=== PATIENT | female | born 1935 | race Caucasian/White ===

== ENCOUNTER 2017-01-06 10:18 | Inpatient (IN) ==
--- NOTE | 2017-01-06 10:59 | PROVIDER DOCUMENTATION ---
This chart was entered by Beverly White Scribe, acting as scribe for Shannen Stroud PA. HPI-Female /OB/Breast - General Source: reports: patient - History of Present Illness-Female /OB Does patient report she is ?: No Location of complaint: reports: urethral Radiation: reports: none Quality of Pain: reports: aching Severity in ED: reports: mild Onset/Duration: reports: unsure Timing: reports: still present Context/Activities at Onset: reports: light activity Vaginal Symptoms: reports: no symptoms Vaginal Bleeding Amount: None Urinary Symptoms: reports: dysuria. denies: hematuria, hesitancy, polyuria, low back pain Sexual intercourse history: reports: Not Active Modifying Factors: improves with: nothing Associated Symptoms: reports: muscle aches (generalized). denies: anxiety, back /neck pain, chest pain, constipation, cough, diaphoresis, diarrhea, dizziness, fatigue, fever/chills, joint pain, loss of appetite, malaise, nausea, rash, seizure, sensory/motor loss, swelling/mass in abdomen, syncope, vomiting, weakness, trouble walking Similar Symptoms Previously?: Yes Recently seen or treated by another doctor?: Yes <Shannen Stroud - Last Filed: 01/06/17 12:20> <Marc Valencia - Last Filed: 01/07/17 06:00> - General Chief Complaint: UTI Symptoms Stated Complaint: AMS Time Seen by Provider: 01/06/17 10:28 Allergies/Adverse Reactions: Patient Allergies Allergy/AdvReac Type Severity Reaction Status Date / Time No Known Allergies Allergy Verified 01/06/17 11:01 Home Medications: Home Medication List Medication Instructions Recorded Confirmed Last Taken Type Divalproex [Depakote] 500 mg PO QHS 01/06/17 01/06/17 1 Day Ago History Donepezil HCl [Aricept] 10 mg PO QHS 01/06/17 01/06/17 1 Day Ago History Duloxetine [Cymbalta] 20 mg PO DAILY 01/06/17 01/06/17 01/06/17 History Fentanyl 1 each TD DIRECTED 01/06/17 01/06/17 Unknown History Insulin Glargine [Lantus] 10 unit SUBQ QAM 01/06/17 01/06/17 Unknown History Levothyroxine Sodium [Synthroid] 25 mcg PO 01/06/17 01/06/17 History Lorazepam [Ativan] 0.5 mg PO BID PRN 01/06/17 01/06/17 2 Days Ago History Losartan [Cozaar] 50 mg PO DAILY 01/06/17 01/06/17 1 Day Ago History Naproxen 250 mg PO Q6-8H PRN PRN 01/06/17 01/06/17 Unknown History Omeprazole 20 mg PO QAM 01/06/17 01/06/17 01/06/17 History Prednisone 5 mg PO QAM 01/06/17 01/06/17 01/06/17 History Temazepam [Restoril] 7.5 mg PO QHS 01/06/17 01/06/17 01/05/17 History - History of Present Illness-Female /OB Nature of Presenting Problem: Pt is 81 y/o F presents to the ED via EMS with dysuria and generalized pain. EMS states Pt was recently treated for a UTI. Pt states pain with urination and generalized pain. (Beverly White) Pt is 81 y/o F presents to the ED via EMS with dysuria and generalized pain. EMS states Pt was recently treated for a UTI. Pt states pain with urination and generalized pain. (Shannen Stroud) Review of Systems - Adult - REVIEW OF SYSTEMS - ADULT Constitutional: reports: no symptoms reported Eyes: reports: no symptoms reported Ears, Nose, Mouth & Throat: reports: no symptoms reported Cardiovascular: reports: no symptoms reported Respiratory: reports: no symptoms reported Gastrointestinal: reports: no symptoms reported Genitourinary: reports: dysuria. denies: flank pain, hematuria, urinary retention Musculoskeletal: reports: muscle aches (generalized). denies: back pain, muscle weakness, neck pain Integumentary: reports: no symptoms reported Neurological: reports: no symptoms reported Psychiatric: reports: no symptoms reported Endocrine: reports: no symptoms reported Hematologic/Lymphatic: reports: no symptoms reported Allergic/Immunologic: reports: no symptoms reported All Other Systems: Reviewed and Negative <Shannen Stroud - Last Filed: 01/06/17 12:20> - REVIEW OF SYSTEMS - ADULT Constitutional: denies: chills, fever Eyes: denies: dry eyes, blurred vision Ears, Nose, Mouth & Throat: denies: ear pain, sinus problem Cardiovascular: reports: no symptoms reported Respiratory: reports: no symptoms reported Gastrointestinal: reports: no symptoms reported Genitourinary: reports: no symptoms reported Musculoskeletal: reports: no symptoms reported, muscle aches Integumentary: reports: no symptoms reported Neurological: reports: no symptoms reported Psychiatric: reports: no symptoms reported Endocrine: reports: no symptoms reported Hematologic/Lymphatic: reports: no symptoms reported Allergic/Immunologic: reports: no symptoms reported All Other Systems: Reviewed and Negative <Marc Valencia - Last Filed: 01/07/17 06:00> Past History - Adult - PAST MEDICAL HISTORY-ADULT Review of Records: reports: Nursing Assessment Review, Medications Reviewed, Social history reviewed & non-contributory. Major Childhood Illnesses: reports: denies history Cardiovascular: reports: HTN Respiratory: reports: denies history Gastrointestinal: reports: denies history Obstetrical/Gynecological: reports: denies history Genitourinary: reports: denies history Musculoskeletal: reports: denies history Neurological: reports: dementia Psychiatric: reports: depression Endocrine/Immune: reports: Diabetes Other Conditions: reports: denies history - PRIOR SURGERIES/PROCEDURES Surgical/Procedure History: reports: reviewed, not pertinent - IMMUNIZATION STATUS Childhood Immunizations: See Nurse Assessment Flu Vaccine: See Nurse Assessment - FAMILY HISTORY Family History: reviewed, not pertinent - SOCIAL HISTORY Smoking: denies Substance Use: denies Living Situation: care facility ([facility]) <Shannen Stroud - Last Filed: 01/06/17 12:20> - PAST MEDICAL HISTORY-ADULT Review of Records: reports: Nursing Assessment Review, Medications Reviewed, Social history reviewed & non-contributory. Major Childhood Illnesses: reports: denies history Cardiovascular: reports: HTN Respiratory: reports: denies history Gastrointestinal: reports: denies history Obstetrical/Gynecological: reports: denies history Genitourinary: reports: denies history Musculoskeletal: reports: denies history Neurological: reports: denies history Endocrine/Immune: reports: denies history Other Conditions: reports: denies history <Marc Valencia - Last Filed: 01/07/17 06:00> Physical Exam-General - PHYSICAL EXAM-ADULT Initial Vital Signs Reviewed: Yes - CONSTITUTIONAL General Appearance: appears well, alert, no apparent distress - EYES Eyes: PERRL/EOMI, pink conjunctivae - HEAD, EARS, NOSE, MOUTH & THROAT HENMT: normocephalic/atraumatic, moist mucous membranes, normal ENT inspection - NECK Neck: supple, normal inspection - RESPIRATORY Respiratory: chest non-tender, lungs clear, normal breath sounds - CARDIOVASCULAR Cardiovascular: normal peripheral pulses, regular rate, rhythm - GASTROINTESTINAL (ABDOMEN) Abdominal Exam: normal bowel sounds, soft, tenderness (suprapubic) - LYMPHATIC Lymphatic: no adenopathy - MUSCULOSKELETAL Back Exam: normal inspection, no CVA tenderness, no vertebral tenderness Extremity: normal range of motion, normal inspection - SKIN Integumentary: normal color, normal turgor - NEUROLOGIC Neurologic: golf ball molder II-XII nml as tested, grossly normal - PSYCHIATRIC Psych/Mental Status: normal mood/affect, oriented x 3 <Shannen Stroud - Last Filed: 01/06/17 12:20> - PHYSICAL EXAM-ADULT Initial Vital Signs Reviewed: Yes - CONSTITUTIONAL General Appearance: appears well, alert, no apparent distress - EYES Eyes: PERRL/EOMI, pink conjunctivae - HEAD, EARS, NOSE, MOUTH & THROAT HENMT: normocephalic/atraumatic, moist mucous membranes - CARDIOVASCULAR Cardiovascular: normal peripheral pulses, regular rate, rhythm - GASTROINTESTINAL (ABDOMEN) Abdominal Exam: normal bowel sounds <Marc Valencia - Last Filed: 01/07/17 06:00> Progress - PLAN OF CARE/RESULTS Result Diagrams: 01/06/17 10:27 01/06/17 10:27 - EKG 1 Time of EKG reading by physician:: 10:57 EKG Read and Signed by:: Marc Valencia EKG Interpretation (*Must complete 3 of following elements*): Abnormal Rate: 68 Rhythm: normal sinus rhythm Comments: septal infarct, age undetermined - XRAY 1 XRAY Study: Chest Impression: See EMR Report (No acute abnormality, per Dr. Armenta) - CONSULTS/PCP/HOSPITALIST Notification #1 *Consult/PCP/Hospitalist*: Hospitalist Time Discussed: 12:14 Reason/Comments: KIRSTY Coker, consults with Hospitalist about Pt Consult Disposition: Admit <Shannen Stroud - Last Filed: 01/06/17 12:20> - PLAN OF CARE/RESULTS Result Diagrams: 01/06/17 10:27 01/06/17 10:27 <Marc Valencia - Last Filed: 01/07/17 06:00> - PLAN OF CARE/RESULTS Progress/Plan/Lab Results: Laboratory Results - last 24 hr 01/06/17 01/06/17 01/06/17 10:27 10:27 10:27 WBC 17.74 H RBC 4.04 L Hgb 12.6 D Hct 39.8 MCV 98.5 MCH 31.2 H MCHC 31.7 L RDW Std Deviation 12.9 Plt Count 160 MPV 9.6 Neut % (Auto) 75.9 H Lymph % (Auto) 14.4 L Pike % (Auto) 8.0 Eos % (Auto) 1.5 Baso % (Auto) 0.2 Neut # (Auto) 13.46 H Lymph # (Auto) 2.56 Pike # (Auto) 1.42 H Eos # (Auto) 0.26 Baso # (Auto) 0.04 PT 11.4 INR 1.08 PTT (Actin FS) 25.2 Sodium 139 Potassium 4.9 Chloride 102 Carbon Dioxide 22 L Anion Gap 15 BUN 52 H Creatinine 1.5 H Estimated GFR/1.73 m2 33 BUN/Creatinine Ratio 35 Glucose 168 H D Calculated Osmolality 295 Calcium 8.3 L Total Bilirubin 0.28 AST 14 ALT 7 L Alkaline Phosphatase 124 H Creatine Kinase 17 L Troponin T Total Protein 5.6 L Albumin 2.7 L Globulin 2.9 Albumin/Globulin Ratio 0.9 Urine Source Urine Color Urine Turbidity Urine pH Ur Specific Foster Urine Protein Ur Glucose (Stick) Ur Ketones (Stick) Urine Blood Urine Nitrite Urine Bilirubin Urobilinogen Dipstick Urine Leukocytes Urine WBC (Auto) Urine RBC (Auto) U Epithel Cells (Auto) Urine Bacteria (Auto) Urine Opiates Screen Ur Oxycodone Screen Ur Methadone, Qual Ur Barbiturates Screen Ur Phencyclidine Scrn Ur Amphetamines Screen U Benzodiazepines Scrn Urine Cocaine Screen U Cannabinoids Screen 01/06/17 01/06/17 01/06/17 10:27 10:50 10:50 WBC RBC Hgb Hct MCV MCH MCHC RDW Std Deviation Plt Count MPV Neut % (Auto) Lymph % (Auto) Pike % (Auto) Eos % (Auto) Baso % (Auto) Neut # (Auto) Lymph # (Auto) Pike # (Auto) Eos # (Auto) Baso # (Auto) PT INR PTT (Actin FS) Sodium Potassium Chloride Carbon Dioxide Anion Gap BUN Creatinine Estimated GFR/1.73 m2 BUN/Creatinine Ratio Glucose Calculated Osmolality Calcium Total Bilirubin AST ALT Alkaline Phosphatase Creatine Kinase Troponin T 0.011 Total Protein Albumin Globulin Albumin/Globulin Ratio Urine Source CLEAN CATCH Urine Color ORANGE Urine Turbidity HAZY Urine pH 6.5 Ur Specific Foster 1.016 Urine Protein 30 A Ur Glucose (Stick) NEGATIVE Ur Ketones (Stick) NEGATIVE Urine Blood MODERATE A Urine Nitrite NEGATIVE Urine Bilirubin NEGATIVE Urobilinogen Dipstick NORMAL Urine Leukocytes MODERATE A Urine WBC (Auto) TNTC A Urine RBC (Auto) TNTC A U Epithel Cells (Auto) <10 Urine Bacteria (Auto) NEGATIVE Urine Opiates Screen NONE DETECTED Ur Oxycodone Screen NONE DETECTED Ur Methadone, Qual NONE DETECTED Ur Barbiturates Screen NONE DETECTED Ur Phencyclidine Scrn NONE DETECTED Ur Amphetamines Screen NONE DETECTED U Benzodiazepines Scrn NONE DETECTED Urine Cocaine Screen NONE DETECTED U Cannabinoids Screen NONE DETECTED Orders Category Date Time Status Admit - [facility] Routine AdmDCTranf 01/06/17 12:16 Ordered Activity - Bed Rest with BRP ORDERED Care 01/06/17 12:16 Active Call Admitting on Arrival AT ADMISSION Care 01/06/17 12:18 Active Cardiac Monitoring DIRECTED Care 01/06/17 10:29 Active Finger Stick Blood Sugar (ED) DIRECTED Care 01/06/17 10:29 Completed Neurological Check PRN Care 01/06/17 12:16 Active Oxygen Therapy- ED Nursing DIRECTED Care 01/06/17 10:29 Active Saline Loc NOW Care 01/06/17 10:29 Active Vital Signs Order Q 8-HR ASSESS Care 01/06/17 12:16 Active Diabetic Diet Diet 01/06/17 12:18 Active CHEST-PORTABLE [RAD] Stat Exams 01/06/17 10:29 Completed CBC WITH ELECTRONIC DIFF [HEME] Stat Lab 01/06/17 10:27 Completed CK PROFILE [SP CHEM] Stat Lab 01/06/17 10:27 Completed COMPREHENSIVE METABOLIC PANEL [CHEM] Stat Lab 01/06/17 10:27 Completed PROTIME WITH INR [COAG] Stat Lab 01/06/17 10:27 Completed PTT [COAG] Stat Lab 01/06/17 10:27 Completed TROPONIN T Stat Lab 01/06/17 10:27 Completed URINALYSIS W/POSS RFLX CULT-1 [URINALYSIS] Stat Lab 01/06/17 10:50 Completed URINE CULTURE [RM] Routine Lab 01/06/17 11:08 Received URINE DRUG SCREEN Stat Lab 01/06/17 10:50 Completed 0.9% Sodium Chloride Inj [Ns] 1,000 ml Med 01/06/17 12:06 Discontinued IV 125 mls/hr CefTRIAXONE 1 GM/NS [Rocephin 1 gm/Ns] Med 01/06/17 12:14 Discontinued 1 gm in 50 ml IV NOW EKG [EKG] Stat Ther 01/06/17 10:29 Draft Transfer/Admit Order [TRANSFER] Routine Transfer 01/06/17 12:20 Completed Departure - Departure Date of Disposition Decision: 01/06/17 Time of Disposition Decision: 12:15 Certified Medical Emergency: Emergent - Critical Care Note This patient required my direct & personal management of CC.: No <Shannen Stroud - Last Filed: 01/06/17 12:20> - Departure Date of Disposition Decision: 01/06/17 Time of Disposition Decision: 12:20 Certified Medical Emergency: Emergent - Critical Care Note This patient required my direct & personal management of CC.: No <Marc Valencia - Last Filed: 01/07/17 06:00> - Departure DIAGNOSIS: UTI (urinary tract infection) Qualifiers: Urinary tract infection type: acute cystitis Hematuria presence: without hematuria Qualified Code(s): N30.00 - Acute cystitis without hematuria Leukocytosis Qualifiers: Leukocytosis type: unspecified Qualified Code(s): D72.829 - Elevated white blood cell count, unspecified Disposition: ADMITTED INPATIENT 09 Condition: Stable Attestation - Physician/ CHINO Attestation Patient care was provided by Advanced Practice Provider:: Yes Advanced Practice Provider:: Shannen Stroud Advanced Practice Provider documentation review:: The Mid-level provider documentation, treatment plan and medical decision making was reviewed by the physician who agrees with all treatment and medical decision making by the MLP. <Shannen Stroud - Last Filed: 01/06/17 12:20> This chart was documented by the indicated Olga zhangBeverly White, Ricky) and accurately reflects the services I performed and decisions made by me, Shannen Stroud PA, as attested by the provider's signature.
[2017-01-06 11:02] LABS: URINE MICRO REVIEW NEEDED? NO; URINE SOURCE CLEAN CATCH
[2017-01-06 11:06] LABS: BILIRUBIN URINE NEGATIVE (NEGATIVE); BLOOD URINE MODERATE (NEGATIVE); COLOR ORANGE; GLUCOSE URINE NEGATIVE (NEGATIVE); LEUKOCYTES URINE MODERATE (NEGATIVE); NITRITE URINE NEGATIVE (NEGATIVE); PH URINE 6.5; PROTEIN URINE 30 mg/dL (NEGATIVE); SP GRAVITY URINE 1.016; TURBIDITY URINE HAZY (CLEAR); UR EPITHELIAL CELLS <10 /HPF (<10); URINE BACTERIA NEGATIVE /HPF; URINE CULTURE NEEDED? YES; URINE RBC TNTC /HPF (<10); URINE WBC TNTC /HPF (<10); UROBILINOGEN URINE NORMAL (NORMAL)
[2017-01-06 11:08] LABS: INR 1.08; PROTIME 11.4 Seconds (9.2-11.7); PTT 25.2 Seconds (22.0-36.0)
--- NOTE | 2017-01-06 11:09 | Diag Imaging Result Doc PS360 ---
EXAM: CHEST-PORTABLE HISTORY: AMS TECHNIQUE: Portable upright COMPARISON: None. FINDINGS: The lungs are well expanded. The heart is not enlarged. The vessels are not distended. No pneumonia. No pleural effusions. There is a granuloma in the lower left lung. Prominent arthritic changes to the left shoulder. IMPRESSION: No acute abnormality. Electronically signed by Quincy Armenta 01/06/2017 11:06 AM
[2017-01-06 11:16] LABS: UR AMPHETAMINES QUAL NONE DETECTED (NONE DETECT); UR BARBITUATES QUAL NONE DETECTED (NONE DETECT); UR BENZODIAZEPIN QUAL NONE DETECTED (NONE DETECT); UR CANNABINOIDS QUAL NONE DETECTED (NONE DETECT); UR COCAINE QUAL NONE DETECTED (NONE DETECT); UR METHADONE QUAL NONE DETECTED (NONE DETECT); UR OPIATES QUAL NONE DETECTED (NONE DETECT); UR OXYCODONE QUAL NONE DETECTED (NONE DETECT); UR PCP QUAL NONE DETECTED (NONE DETECT)
[2017-01-06 11:20] LABS: BASO% 0.2 % (0.0-0.8); EOS# 0.26 X1000 (0.0-0.7); EOS% 1.5 % (0.0-10.0); HEMATOCRIT 39.8 % (37.0-47.0); HEMOGLOBIN 12.6 g/dL (12.0-16.0); LYMPH# 2.56 X1000 (1.2-3.4); LYMPH% 14.4 % (20.5-51.1); MANUAL DIFF NEEDED? NO; MCH 31.2 PG (27-31); MCHC 31.7 g/dL (33-37); MCV 98.5 FL (81-99); MONO# 1.42 X1000 (0.11-0.59); MPV 9.6 FL (7.4-10.4); NEUT% 75.9 % (42.2-75.2); PLT 160 X1000 (130-400); RBC 4.04 XMIL (4.2-5.4)
[2017-01-06 11:27] LABS: ALBUMIN 2.7 g/dL (3.5-5.0); CALCIUM 8.3 mg/dL (8.8-10.2); POTASSIUM 4.9 mmol/L (3.5-5.1); TOTAL BILIRUBIN 0.28 mg/dL (0.20-1.00); TOTAL PROTEIN 5.6 g/dL (6.3-8.3)
[2017-01-06] MEDS ORDERED: NS 1,000 ML IV ONE (12:06)
[2017-01-06] MEDS ORDERED: ROCEPHIN 1 GM/NS 1 GM/50 ML IVPB IV ONE (12:14)
[2017-01-06] MEDS ORDERED: ZOFRAN IV PRN (13:10)
[2017-01-06] MEDS ORDERED: DURAGESIC 25 MICROGM/HR PATCH TD SCH (13:15)
--- NOTE | 2017-01-06 15:10 | EKG Report ---
Test Performed on : 01/06/2017 10:57:25 AM Test Reason : AMS Blood Pressure : / mmHG Vent. Rate : 068 BPM Atrial Rate : 068 BPM P-R Int : 136 ms QRS Dur : 086 ms QT Int : 416 ms P-R-T Axes : 065 -26 028 degrees QTc Int : 442 ms Normal sinus rhythm. Septal infarct , age undetermined Abnormal ECG No previous ECGs available Unconfirmed Result
[2017-01-06] MEDS ORDERED: HUMALOG SUBQ SCH (16:00)
[2017-01-06] MEDS: HUMULIN R SUBQ SCH ×2 (16:13→21:07)
[2017-01-06] MEDS: ARICEPT PO SCH (21:02)
[2017-01-06] MEDS: DEPAKOTE PO SCH (21:02)
[2017-01-06] MEDS: NS 1,000 ML IV SCH (21:02)
[2017-01-06] MEDS: ATIVAN PO PRN (21:03)
--- NOTE | 2017-01-06 22:03 | HISTORY AND PHYSICAL ---
CHIEF COMPLAINT: Per records, altered mental status. Per the patient, burning with urination. HISTORY OF PRESENT ILLNESS: Ms. Fernandez is a 81-year-old female, who carries a past medical history of Alzheimer's, diabetes mellitus type 2, hypertension, depression, kidney disease, who was recently diagnosed with a UTI at [facility]. She was still complaining of dysuria, generalized pain. Per report, the long-term felt like she was more altered than her baseline. So they sent her to the ED to be evaluated. She was found have a white count of 17, a BUN of 52 and a creatinine of 1.5, a blood glucose level 168. She had too numerous to count white blood cells, but no urine bacteria. She was afebrile. Chest x-ray showed no acute abnormality. The patient was oriented to name. She thought she was born in 1913. She thought the year was 1948. She thought she was in [place] and that she was in [facility] and she could not recall the president. She did not know why she was in the hospital, but she could tell me that she had burning with urination as well as generalized back pain. The patient was admitted for failed outpatient UTI treatment at [facility]. She will be admitted to the medical telemetry floor. PAST MEDICAL HISTORY: 1. Alzheimer's. 2. Diabetes mellitus type 2. 3. Hypertension. 4. Depression. 5. Chronic kidney disease. PAST SURGICAL HISTORY: Unknown. SOCIAL HISTORY: Patient is from [facility]. She states that she is from [place]. There was no family at bedside to confirm. ALLERGIES: No known drug allergies. HOME MEDICATIONS: 1. Synthroid, unknown dosage. 2. Ativan 0.5 mg p.o. b.i.d. 3. Naproxen 250 mg p.o. q.8 hours p.r.n. 4. Restoril 7.5 mg p.o. at bedtime. 5. Depakote 500 mg p.o. at bedtime. 6. Aricept 10 mg p.o. at bedtime. 7. Cymbalta 20 mg p.o. daily. 8. Fentanyl 1 h.t.d As directed. The date on it said 01/03/2017. 9. Lantus 10 units subcutaneous at bedtime. 10. Cozaar 50 mg p.o. daily. 11. Prilosec 20 mg p.o. q.a.m. 12. Prednisone 5 mg p.o. q.a.m. REVIEW OF SYSTEMS: 10 point review of systems completely negative except for those mentioned in HPI. PHYSICAL EXAMINATION: VITAL SIGNS: Temperature is 97.9 degrees, heart rate 86, respirations 18, blood pressure 165/76, O2 is 98% on room air. GENERAL: Ms. Fernandez is a 81-year-old female, who is lying in bed, in no acute distress. HEENT: Atraumatic, normocephalic. PERRLA. NECK: Supple. Trachea midline. CARDIOVASCULAR: No murmurs, gallops, rubs noted. S1 S2. LUNG: Clear. Equal excursion. Nonlabored breathing. GI: Soft, nontender, nondistended. Positive bowel sounds 4 quadrants. : Patient was incontinent of urine. EXTREMITIES: Negative for edema. Bilateral pedal pulses are palpable. SKIN: Warm, dry, and intact. NEUROLOGIC: The patient is alert to name only. She believes her birthday was 1947. She believes the year was 1947. She believes she was in [facility] and that she was in [facility]. LABORATORY DATA: White count 17, hemoglobin 12, hematocrit 39, platelet count is 160,000. Chemistry: Sodium 139, potassium 4.9, BUN 52, creatinine 1.5, blood glucose 168, urine protein 30. Urine moderate blood. Leukocytes moderate. WBCs were too numerous to count. RBCs too numerous to count. Negative for bacteria. Toxicology was negative. Urine culture is pending. DIAGNOSTICS: Chest x-ray showed no acute abnormality. ASSESSMENT AND PLAN: 1. Failed outpatient treatment of urinary tract infection. The patient was initiated on intravenous Rocephin. She will receive IV fluids. Await urine culture. 2. Alzheimer's. Continue on home medications. 3. Diabetes mellitus. We will do pattern blood sugars with sliding scale insulin. 4. Questionable acute kidney injury on chronic kidney disease. Continue with IV fluids. Recheck basic metabolic panel in the a.m. 5. Further recommendations to follow physician evaluation. Dictated by ISHMAEL Robison for Shannen Rivas MD cc: Shannen Rivas MD
[2017-01-07] MEDS: HUMULIN R SUBQ SCH ×4 (06:42→22:42)
[2017-01-07] MEDS: PRILOSEC PO SCH (06:42)
[2017-01-07 06:56] LABS: MANUAL DIFF NEEDED? NO
[2017-01-07 07:22] LABS: CALCIUM 8.5 mg/dL (8.8-10.2); POTASSIUM 4.9 mmol/L (3.5-5.1)
[2017-01-07 07:27] LABS: BASO% 0.3 % (0.0-0.8); EOS# 0.19 X1000 (0.0-0.7); HEMATOCRIT 33.7 % (37.0-47.0); HEMOGLOBIN 10.9 g/dL (12.0-16.0); IMM GRAN# 0.36 X1000 (0.0-0.04); LYMPH# 2.75 X1000 (1.2-3.4); LYMPH% 15.2 % (20.5-51.1); MCHC 32.3 g/dL (33-37); MCV 95.7 FL (81-99); MONO# 1.21 X1000 (0.11-0.59); MONO% 6.7 % (1.7-9.3); MPV 9.3 FL (7.4-10.4); NEUT% 74.8 % (42.2-75.2); PLT 177 X1000 (130-400); RBC 3.52 XMIL (4.2-5.4)
[2017-01-07] MEDS ORDERED: COZAAR PO SCH (09:00)
[2017-01-07] MEDS ORDERED: LANTUS SUBQ SCH (09:00)
[2017-01-07] MEDS: PREDNISONE PO SCH (09:44)
[2017-01-07] MEDS: DURAGESIC 25 MICROGM/HR PATCH TD SCH (09:44)
[2017-01-07] MEDS: CYMBALTA PO SCH (09:44)
[2017-01-07] MEDS: NS 1,000 ML IV SCH ×3 (09:47→22:43)
[2017-01-07] MEDS: ROCEPHIN 1 GM/NS 1 GM/50 ML IVPB IV SCH (13:24)
--- NOTE | 2017-01-07 17:51 | PROGRESS NOTE ---
DATE: 01/07/2017 SUBJECTIVE: This patient states that she is feeling better. She is not complaining of pain or burning sensation, she is disoriented. OBJECTIVE: Vital Signs: Temperature 97.8 degrees, pulse 81, respiratory rate 21, blood pressure 145/58, oxygen saturation 97% on room air. HEENT: Head normocephalic. No trauma. PERRLA. Neck: Supple. No JVD. No masses. Central trachea. Chest: Clear to auscultation. No wheezing. No rales. Abdomen: Soft, nontender, nondistended. No hepatosplenomegaly. Extremity: No edema. No clubbing. No cyanosis. Neurological: This patient is alert. She is oriented to name only. She notes that she is in the hospital. She does not know which one. She moves all 4 extremities. LABORATORY: WBC 18.1, hemoglobin 10.9, hematocrit 33.7, platelets 177,000. Sodium 139, potassium 4.9, chloride 105, bicarbonate 25, BUN 33, creatinine 1, glucose 97, calcium 8.5. ASSESSMENT AND PLAN: 1. Failed outpatient treatment of urinary tract infection, we will continue with IV Rocephin. Urine culture and blood cultures so far have been negative. We will continue also with IV fluids. 2. Alzheimer's disease. Continue with home medication. 3. Type 2 diabetes. We will do a sliding scale and pattern of blood sugar. 4. Chronic kidney disease, chronic and stable. We will continue with the same management. cc: Stew Killian MD
[2017-01-07] MEDS: ATIVAN PO PRN (20:05)
[2017-01-07] MEDS: DEPAKOTE PO SCH (20:05)
[2017-01-07] MEDS: ARICEPT PO SCH (20:05)
[2017-01-08 05:45] LABS: MANUAL DIFF NEEDED? NO
[2017-01-08 05:48] LABS: BASO% 0.2 % (0.0-0.8); EOS% 1.1 % (0.0-10.0); HEMATOCRIT 32.2 % (37.0-47.0); HEMOGLOBIN 10.3 g/dL (12.0-16.0); IMM GRAN# 0.34 X1000 (0.0-0.04); IMM GRAN% 1.9 % (0.0-0.5); LYMPH# 2.75 X1000 (1.2-3.4); MCH 30.8 PG (27-31); MCV 96.4 FL (81-99); MONO# 1.09 X1000 (0.11-0.59); MONO% 5.9 % (1.7-9.3); MPV 9.1 FL (7.4-10.4); NEUT% 75.9 % (42.2-75.2); PLT 178 X1000 (130-400); RBC 3.34 XMIL (4.2-5.4)
[2017-01-08 06:06] LABS: CALCIUM 7.9 mg/dL (8.8-10.2); POTASSIUM 4.8 mmol/L (3.5-5.1)
[2017-01-08] MEDS: PRILOSEC PO SCH (06:24)
[2017-01-08] MEDS: HUMULIN R SUBQ SCH ×3 (06:24→16:57)
[2017-01-08] MEDS: CYMBALTA PO SCH (08:52)
[2017-01-08] MEDS: PREDNISONE PO SCH (08:52)
[2017-01-08] MEDS: NS 1,000 ML IV SCH ×2 (11:37→12:29)
[2017-01-08] MEDS: ROCEPHIN 1 GM/NS 1 GM/50 ML IVPB IV SCH (14:11)
--- NOTE | 2017-01-08 15:15 | PROGRESS NOTE ---
DATE: 01/08/2017 SUBJECTIVE: This patient is confused, she has Alzheimer disease, she states that she is feeling better. She is not complaining of pain or burning sensation. OBJECTIVE: Vital signs: Temperature 98.2 degrees, pulse 51, respiratory rate 14, blood pressure 158/69. O2 saturation, 100% on room air. HEENT: Head normocephalic. No trauma. PERRLA. Neck: Supple. No JVD. No masses. Central trachea. Chest: Clear to auscultation. No wheezing. No rales. Abdomen: Soft, nontender, nondistended. No hepatosplenomegaly. Extremities: No edema. No clubbing. No cyanosis. Neurological: The patient is alert. She e is oriented to name only. She knows that she is in the hospital. She does not know which one. She moves all 4 extremities. LABORATORY: WBC 18.3, hemoglobin 10.3, hematocrit 32.2, platelet 178,000. Sodium 141, potassium 4.8, chloride 108, bicarbonate 23, BUN 30, creatinine 0.9, glucose 112, calcium 7.9. ASSESSMENT AND PLAN: 1. Failed outpatient treatment for urinary tract infection. We will continue with IV Rocephin. Urine culture and blood culture so far have been negative. We will continue with IV fluids as well. 2. Alzheimer's disease. Continue with home medication. 3. Type 2 diabetes. Continue with sliding scale and pattern of blood sugar. 4. Chronic kidney disease, chronic and stable. Continue with the same management. Overall, this patient is about the same, her white blood cells are still high even with the antibiotics. Cultures have been negative. We will monitor this patient during the weekend, and probably we will discharge this patient back to [facility] on Wednesday. cc: Stew Killian MD
[2017-01-08] MEDS ORDERED: HALDOL IM ONE (19:44)
[2017-01-08] MEDS: ARICEPT PO SCH (20:00)
[2017-01-08] MEDS: DEPAKOTE PO SCH (20:00)
[2017-01-08] MEDS: ATIVAN PO PRN (20:01)
[2017-01-09] MEDS: HUMULIN R SUBQ SCH ×5 (02:16→21:03)
[2017-01-09] MEDS: NS 1,000 ML IV SCH ×2 (02:17→16:26)
[2017-01-09] MEDS: ATIVAN PO PRN ×2 (05:44→20:42)
[2017-01-09] MEDS: PRILOSEC PO SCH (06:09)
[2017-01-09 06:18] LABS: MANUAL DIFF NEEDED? NO
[2017-01-09 06:26] LABS: BASO% 0.3 % (0.0-0.8); EOS# 0.16 X1000 (0.0-0.7); EOS% 1.1 % (0.0-10.0); HEMATOCRIT 32.4 % (37.0-47.0); HEMOGLOBIN 10.4 g/dL (12.0-16.0); IMM GRAN# 0.14 X1000 (0.0-0.04); LYMPH# 2.12 X1000 (1.2-3.4); LYMPH% 14.8 % (20.5-51.1); MCH 30.8 PG (27-31); MCHC 32.1 g/dL (33-37); MCV 95.9 FL (81-99); MPV 9.3 FL (7.4-10.4); NEUT% 75.8 % (42.2-75.2); PLT 190 X1000 (130-400); RBC 3.38 XMIL (4.2-5.4)
[2017-01-09 06:41] LABS: CALCIUM 8.8 mg/dL (8.8-10.2); POTASSIUM 4.1 mmol/L (3.5-5.1)
[2017-01-09] MEDS: NORVASC PO SCH ×2 (09:49→20:42)
[2017-01-09] MEDS: PREDNISONE PO SCH (09:49)
[2017-01-09] MEDS: CYMBALTA PO SCH (09:50)
--- NOTE | 2017-01-09 14:04 | PROGRESS NOTE ---
DATE: 01/09/2017 SUBJECTIVE: This patient is still confused. She has Alzheimer disease. She states that she is feeling better. She is not complaining of pain at this moment. We have been unable to get a good peripheral line. I will switch the IV antibiotics to p.o. antibiotics. I will continue to monitor. OBJECTIVE: Vital Signs: Temperature 98 degrees, pulse 63, respiratory rate 16, blood pressure 167/62, oxygen saturation 99% on room air. HEENT: Head normocephalic. No trauma. PERRLA. Neck: Supple. No JVD. No masses. Central trachea. Chest: Clear to auscultation. No wheezing. No rales. Abdomen: Soft, nontender, nondistended. No hepatosplenomegaly. Extremities: No edema. No clubbing. No cyanosis. Neurological: The patient is alert. She is oriented to person. She has baseline dementia. She moves all 4 extremities. LABORATORY: WBC 14.3, hemoglobin 10.4, hematocrit 32.4, platelet 190,000. Sodium 142, potassium 4.1, chloride 108, bicarbonate 24, BUN 25, creatinine 0.9, glucose 124, calcium 8.8. ASSESSMENT AND PLAN: 1. Failed outpatient treatment for urinary tract infection. We will continue with antibiotics. I will switch her IV Rocephin to p.o. Keflex. I will continue this treatment and hopefully on Wednesday I will send this patient back to the long term. 2. Alzheimer disease. Aware. Continue with home medication. 3. Type 2 diabetes. Continue with sliding scale insulin and pattern of blood sugar. 4. Leukocytosis. This is getting better. Continue with the same management. Continue with antibiotics. 5. Chronic kidney disease, chronic and stable. Continue with the same treatment. 6. Hypertension. This patient used to be on losartan and that was stopped because she had acute kidney injury. I will put this patient on a low dose of amlodipine and I will monitor. cc: Stew Killian MD
[2017-01-09] MEDS ORDERED: HALDOL IM ONE (14:30)
[2017-01-09] MEDS: KEFLEX PO SCH (20:42)
[2017-01-09] MEDS: DEPAKOTE PO SCH (20:43)
[2017-01-09] MEDS: ARICEPT PO SCH (20:43)
[2017-01-09] MEDS: TYLENOL PO PRN (22:50)
[2017-01-10 06:30] LABS: MANUAL DIFF NEEDED? NO
[2017-01-10] MEDS: HUMULIN R SUBQ SCH ×4 (06:30→20:06)
[2017-01-10 06:38] LABS: BASO% 0.5 % (0.0-0.8); EOS# 0.18 X1000 (0.0-0.7); EOS% 1.5 % (0.0-10.0); HEMATOCRIT 31.4 % (37.0-47.0); HEMOGLOBIN 10.3 g/dL (12.0-16.0); IMM GRAN# 0.12 X1000 (0.0-0.04); LYMPH# 2.47 X1000 (1.2-3.4); LYMPH% 20.3 % (20.5-51.1); MCH 31.2 PG (27-31); MCHC 32.8 g/dL (33-37); MCV 95.2 FL (81-99); MONO# 1.04 X1000 (0.11-0.59); MONO% 8.6 % (1.7-9.3); MPV 9.3 FL (7.4-10.4); NEUT% 68.1 % (42.2-75.2); PLT 205 X1000 (130-400)
[2017-01-10 06:54] LABS: ALBUMIN 2.6 g/dL (3.5-5.0); CALCIUM 8.3 mg/dL (8.8-10.2); TOTAL BILIRUBIN 0.3 mg/dL (0.20-1.00); TOTAL PROTEIN 5.3 g/dL (6.3-8.3)
[2017-01-10] MEDS: PREDNISONE PO SCH (10:09)
[2017-01-10] MEDS: LOVENOX SUBQ SCH (10:10)
[2017-01-10] MEDS: PRILOSEC PO SCH (10:10)
[2017-01-10] MEDS: KEFLEX PO SCH ×2 (10:10→20:06)
[2017-01-10] MEDS: NORVASC PO SCH ×2 (10:10→20:06)
[2017-01-10] MEDS: DURAGESIC 25 MICROGM/HR PATCH TD SCH (10:10)
[2017-01-10] MEDS: CYMBALTA PO SCH (10:10)
--- NOTE | 2017-01-10 16:13 | PROGRESS NOTE ---
DATE: 01/10/2017 SUBJECTIVE: This patient has Alzheimer dementia, she is still confused. She is oriented to person. She is tolerating the antibiotics. She is feeling fine, hopefully tomorrow will send this patient back to [facility]. OBJECTIVE: Vital Signs: Temperature 97.6 degrees, pulse 59, respiratory rate 14, blood pressure 141/59, oxygen saturation 100% on room air. HEENT: Head normocephalic. No trauma. PERRLA. Neck: Supple. No JVD. No masses. Central trachea. Chest: Clear to auscultation. No wheezing. No rales. Abdomen: Soft, nontender, nondistended. No hepatosplenomegaly. Extremities: No edema. No clubbing. No cyanosis. Neurological: The patient is alert. She is oriented to person, she has baseline dementia. She moves all 4 extremities. LABORATORY: WBC 12.1, hemoglobin 10.3, hematocrit 31.4, platelet 205,000. Sodium 139, potassium 4, chloride 104, bicarbonate 25, BUN 24, creatinine 1, glucose 125, calcium 8.3, albumin 2.6. ASSESSMENT AND PLAN: 1. Failed outpatient treatment for urinary tract infection. Will continue with antibiotics. I already switched her IV Rocephin to Keflex p.o., she is tolerating this, she is feeling better. Hopefully tomorrow I will discharge this patient. 2. Alzheimer disease aware. Continue with home medications. 3. Type 2 diabetes. Continue with the sliding scale insulin and pattern of blood sugar. 4. Leukocytosis. This is getting better. Continue with the same management. 5. Chronic kidney disease chronic and stable. Continue with the same treatment. 6. Hypertension. Better controlled. Continue with the same management, this patient used to be on losartan but this treatment has been stopped because of her acute kidney injury. For now this patient will be on amlodipine. cc: Stew Killian MD
[2017-01-10] MEDS: TYLENOL PO PRN (19:44)
[2017-01-10] MEDS: ATIVAN PO PRN (19:44)
[2017-01-10] MEDS: ARICEPT PO SCH (20:05)
[2017-01-10] MEDS: DEPAKOTE PO SCH (20:06)
[2017-01-10] MEDS ORDERED: HALDOL IM ONE (20:12)
[2017-01-11] MEDS: TYLENOL PO PRN (04:26)
[2017-01-11] MEDS: ATIVAN PO PRN (04:26)
[2017-01-11] MEDS: PRILOSEC PO SCH (06:02)
[2017-01-11] MEDS: HUMULIN R SUBQ SCH ×2 (06:02→10:56)
[2017-01-11 06:50] LABS: MANUAL DIFF NEEDED? NO
[2017-01-11 06:55] LABS: BASO% 0.5 % (0.0-0.8); EOS# 0.11 X1000 (0.0-0.7); HEMATOCRIT 30.2 % (37.0-47.0); HEMOGLOBIN 9.9 g/dL (12.0-16.0); IMM GRAN# 0.07 X1000 (0.0-0.04); IMM GRAN% 0.6 % (0.0-0.5); LYMPH# 2.04 X1000 (1.2-3.4); LYMPH% 18.4 % (20.5-51.1); MCH 30.7 PG (27-31); MCHC 32.8 g/dL (33-37); MCV 93.8 FL (81-99); MONO# 1.07 X1000 (0.11-0.59); MONO% 9.7 % (1.7-9.3); MPV 9.4 FL (7.4-10.4); NEUT% 69.8 % (42.2-75.2); PLT 236 X1000 (130-400); RBC 3.22 XMIL (4.2-5.4)
[2017-01-11 07:20] LABS: AGAP 8; BUN 19 mg/dL (8-22); CALCIUM 8.5 mg/dL (8.8-10.2); CHLORIDE 104 mmol/L (98-107); COSMO 281; POTASSIUM 3.9 mmol/L (3.5-5.1); SODIUM 139 mmol/L (136-145); TCO2 27 mmol/L (25-35)
[2017-01-11 07:50] VITALS: BP 156/51
[2017-01-11] MEDS: LOVENOX SUBQ SCH (08:38)
[2017-01-11] MEDS: NORVASC PO SCH (09:36)
[2017-01-11] MEDS: CYMBALTA PO SCH (09:36)
[2017-01-11] MEDS: PREDNISONE PO SCH (09:37)
[2017-01-11] MEDS: KEFLEX PO SCH (09:37)
--- NOTE | 2017-01-11 12:39 | DISCHARGE SUMMARY ---
ADMISSION DATE: 01/08/2017 DISCHARGE DATE: 01/11/2017 CONSULTATIONS: None. PERTINENT PROCEDURES: Chest x-ray showed no acute abnormality. DISCHARGE DIAGNOSES: 1. Failed outpatient treatment of urinary tract infection. The patient will discharge back to [facility] on p.o. Keflex. 2. Alzheimer disease, aware. Patient appears to be back at baseline. 3. Type 2 diabetes. Continue with patient's home medications. 4. Leukocytosis, improved. 5. Chronic kidney disease, stable. 6. Hypertension, better controlled. HOSPITAL COURSE: Ms. Fernandez is a 81-year-old female who carries a past medical history of Alzheimer's, diabetes mellitus type 2, hypertension, depression, and kidney disease recently diagnosed with a UTI at [facility]. She is also complaining of dysuria and generalized pain. Per report, the [facility] felt like she was more altered than her baseline so they sent her to the ED to be evaluated. She was found have a white count of 17, BUN 15, creatinine 1.8, blood glucose of 168. She had too numerous to count white blood cells, but no urine bacteria. She was afebrile. Chest x-ray showed no acute abnormality. The patient was oriented to name only so she was admitted for failed outpatient treatment of urinary tract infection. She was initiated on IV antibiotics as well as IV fluids. Her urine culture grew out no growth. Blood cultures were negative. She was switched from IV antibiotics to p.o. Keflex. She appears to be back at her baseline Alzheimer's dementia. She is appropriate for discharge back to [facility]. She has remained afebrile throughout her admission. Her white count has come down from 17 to 11. Vital signs at time of her discharge, temperature is 97.9 degrees, heart rate 92, respirations 18, blood pressure 180/84, O2 is 100% on room air. DISCHARGE DIET: Diabetic. DISCHARGE MEDICATIONS: As per Dr. Killian: 1. Tylenol 650 mg p.o. q.6 h. p.r.n. 2. Keflex 500 mg p.o. q.12 h. 7 days. 3. Depakote 500 mg p.o. at bedtime. 4. Aricept 10 mg p.o. at bedtime. 5. Cymbalta 20 mg p.o. daily. 6. Fentanyl patch 25 mcg/hour patch, 1 TD every 72 hours. 7. Lantus 10 units subcutaneous q.a.m. 8. Synthroid 25 mcg p.o. daily. 9. Ativan 0.5 mg p.o. b.i.d. 10. Cozaar 50 mg p.o. daily. 11. Prilosec 20 mg p.o. q.a.m. 12. Prednisone 5 mg p.o. q.a.m. 13. Restoril 7.5 mg p.o. at bedtime. DISCHARGE INSTRUCTIONS: The patient is being discharged back to [facility] where she is a long-term resident. She can return to the ED for any worsening of symptoms. She will need to take her p.o. antibiotics as prescribed. She was taken off her Cozaar secondary to her initial acute kidney injury. She is now back at her baseline. This medication has now been restarted because her kidney function is back at baseline. The patient is to return to the ED for any worsening of symptoms DISCHARGE TIME: 30 minutes. Dictated by ISHMAEL Robison for Stew Killian MD cc: Stew Killian MD
== END 2017-01-11 14:02 ==
LOC: 3N 10:18 → ED 10:18 → SUATTDRO 12:35
PROVIDERS: ATTEND Internal Medicine